=== PATIENT | male | born 1960 | race African-American/Black ===

== ENCOUNTER 2017-07-08 20:56 | Emergency (ER) | payer SELFPAY ==
[~2017-07-08] VITALS: Ht 177.8 cm; Wt 93.0 kg
[2017-07-08 22:59] VITALS: BP 137/79
== END 2017-07-09 00:06 | disposition left against medical advice (07) ==
LOC: ER 20:56
DX: M25.571 Pain in right ankle and joints of right foot (principal); J45.909 Unspecified asthma, uncomplicated; F14.10 Cocaine abuse, uncomplicated; F17.210 Nicotine dependence, cigarettes, uncomplicated
CPT/HCPCS: 99281; Z7610